=== PATIENT | female | born 1990 | race Caucasian/White ===

== ENCOUNTER 2016-11-23 21:12 | Emergency (ER) | payer OTHER ==
--- NOTE | 2016-11-23 21:44 | ERPHSYRPT ---
- History of Present Illness Time Seen by Provider: 11/23/16 21:40 Source: patient Exam Limitations: no limitations Patient Subjective Stated Complaint: fell yesterday co left wrist pain cant bend her wrist -no other injuries Triage Nursing Assessment: pt is awake and alert and able to answer quetions Physician History: pt fell onto left wrist when slipped on stairs but did not strike any other areas and has no complaints except left wrist; neurovasc tendon function intact ; tender left wrist dorsum and volar; Occurred: this afternoon Method of Injury: fell Quality: constant, sharpness Severity of Pain-Max: moderate Severity of Pain-Current: moderate Extremities Pain Location: wrist: left Modifying Factors: Improves With: cold therapy, immobilization, movement, rest Associated Symptoms: none Allergies/Adverse Reactions: No Known Drug Allergies Allergy (Verified 11/23/16 21:30) Home Medications: Fluoxetine HCl [Prozac] 1 tab DAILY 11/23/16 [History] Hx Tetanus, Diphtheria Vaccination/Date Given: Yes (up to date) Hx Influenza Vaccination/Date Given: No Hx Pneumococcal Vaccination/Date Given: No - Review of Systems Constitutional: No Fever, No Chills Eyes: No Symptoms Ears, Nose, & Throat: No Symptoms Respiratory: No Cough, No Dyspnea Cardiac: No Chest Pain, No Edema, No Syncope Abdominal/Gastrointestinal: No Abdominal Pain, No Nausea, No Vomiting, No Diarrhea Genitourinary Symptoms: No Dysuria Musculoskeletal: Fall, Injury, Joint Pain, No Back Pain, No Neck Pain Skin: No Rash Neurological: No Dizziness, No Focal Weakness, No Sensory Changes Psychological: No Symptoms Endocrine: No Symptoms All Other Systems: Reviewed and Negative - Past Medical History Pertinent Past Medical History: Yes Neurological History: No Pertinent History ENT History: No Pertinent History Cardiac History: No Pertinent History Respiratory History: No Pertinent History Endocrine Medical History: No Pertinent History Musculoskeletal History: No Pertinent History GI Medical History: No Pertinent History History: No Pertinent History Psycho-Social History: Anxiety Female Reproductive Disorders: No Pertinent History Other Medical History: Cold knife cone at age 15 years. Age of first intercourse 15 years. - Past Surgical History Past Surgical History: No Neuro Surgical History: No Pertinent History Cardiac: No Pertinent History Respiratory: No Pertinent History Gastrointestinal: No Pertinent History Genitourinary: No Pertinent History Musculoskeletal: No Pertinent History Female Surgical History: Other Other Surgical History: Conization at age 15 - Social History Smoking Status: Current every day smoker How long have you smoked: 8 Exposure to second hand smoke: Yes Drug Use: none Patient Lives Alone: No - Female History Hx Last Menstrual Period: present Hx Now: Yes - Nursing Vital Signs Nursing Vital Signs: Initial Vital Signs Temperature 97.9 F 11/23/16 21:21 Pulse Rate 64 11/23/16 21:21 Respiratory Rate 18 11/23/16 21:21 Blood Pressure 128/79 11/23/16 21:21 O2 Sat by Pulse Oximetry 99 11/23/16 21:21 Pain Scale Pain Intensity 6 - Physical Exam General Appearance: alert Eyes, Ears, Nose, Throat Exam: moist mucous membranes Neck Exam: non-tender, supple Cardiovascular/Respiratory Exam: chest non-tender, normal breath sounds, regular rate/rhythm, no respiratory distress Abdominal Exam: non-tender, No guarding Back Exam: normal inspection, No vertebral tenderness Shoulder Exam: normal inspection, non-tender, no evidence of injury, normal ROM Elbow/Forearm Exam: normal inspection, non-tender, no evidence of injury, normal ROM Wrist Exam: bone tenderness, pain, soft tissue tenderness Hand Exam: soft tissue tenderness (near wrist only) DTR - Upper Extremity Exam: bicep (R): 2+, bicep (L): 2+, tricep (R): 2+, tricep (L): 2+ Neuro/Tendon Exam: normal sensation, normal motor functions, normal tendon functions, no evidence tendon injury Mental Status Exam: alert, oriented x 3, cooperative Skin Exam: normal color, warm, dry SpO2: 99 Oxygen Delivery: Room Air Procedures - Splinting Location of Splint: Left, Wrist Type of Splint: Velcro Splint Splint Applied By: ED Nurse Pre-Proc Neuro Vasc Exam: normal Post-Proc Neuro Vasc Exam: neurovascular intact, unchanged from pre-exam - Course Nursing assessment & vital signs reviewed: Yes - Radiology Exams Left Wrist X-ray Interpretation: Reviewed by me, Other (cannot rule out nondisplaced scaphoid fracture) Ordered Tests: Active Orders 24 hr Category Date Time Status WRIST (MIN 3 VIEWS) Stat Exams 11/23/16 21:45 Taken - Progress Progress: improved, re-examined Counseled pt/family regarding: diagnosis, need for follow-up, rad results - Departure Time of Disposition: 22:15 Departure Disposition: Home Clinical Impression: Triangular fibrocartilage complex injury Condition: Good Critical Care Time: No Referrals: KRISTIE KNOX [Primary Care Provider] - Instructions: Wrist Sprain, Wrist Fracture Additional Instructions: there could be an undetected fracture of the scaphoid bone inthe wrist - or a tear of the triangular fibrocart - or just a ligament sprain- f/u with your Dr this week to recheck healing and proceed as indicated at that time such as with ortho or MRI ; sometimes an x-ray 10 days later can show the fracture; return meantime if any concerns; followup BP with your Dr also Prescriptions: Hydrocodone/Acetaminophen [[place] 5-325 Tablet] 1 each PO Q4-6HPRN PRN #14 tablet PRN Reason: Pain
[2016-11-23] MEDS ORDERED: NORCO 5/325 MG PO ONE (22:23)
[2016-11-23] MEDS ORDERED: NORCO 5/325 MG ONE (22:27)
[2016-11-23 22:33] VITALS: BP 115/61; PULSE 68; O2SAT 98
--- NOTE | 2016-11-24 10:47 | XRAY ---
Indication: Pain following fall. Comparison: None 3 views of the left wrist obtained. No bony, articular, or soft tissue abnormalities.
== END 2016-11-23 22:33 | disposition home or self-care (01) ==
LOC: ED 21:12
DX: S63.592A Other specified sprain of left wrist, initial encounter (principal); W10.9XXA Fall (on) (from) unspecified stairs and steps, initial encounter
CPT/HCPCS: 73110; 99283; 99284; L3908; A9270-GY

== ENCOUNTER 2017-05-02 23:46 | Emergency (ER) | payer OTHER ==
[2017-05-03] MEDS ORDERED: TORAdol 30 mg Injection IM ONE (00:14)
--- NOTE | 2017-05-03 00:14 | ERPHSYRPT ---
- History of Present Illness Time Seen by Provider: 05/03/17 00:11 Source: patient Exam Limitations: no limitations Patient Subjective Stated Complaint: pain in left wrist x 2 days no known injury. is a hairdresser.. Triage Nursing Assessment: alert cooperative. pain in left wrist. no known injury.. no deformity noted. + radial pulse present. pain with flexin/ extension. Physician History: 27 y/o female comes to the ER with complaints of left wrist pain for the past 2 days. 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 Pt describes the pain as sharp, constant, 8/10, worse with movement and not relieved by motrin. Pt denies any injury to the wrist. Occurred: days ago Method of Injury: unknown Quality: constant Severity of Pain-Max: moderate Severity of Pain-Current: moderate Extremities Pain Location: wrist: left Modifying Factors: Improves With: nothing Associated Symptoms: none Allergies/Adverse Reactions: No Known Drug Allergies Allergy (Verified 11/23/16 21:30) Home Medications: Fluoxetine HCl [Prozac] 1 tab DAILY 11/23/16 [History] Hx Tetanus, Diphtheria Vaccination/Date Given: Yes (up to date) Hx Influenza Vaccination/Date Given: No Hx Pneumococcal Vaccination/Date Given: No Immunizations Up to Date: Yes - Review of Systems Constitutional: No Fever, No Chills Eyes: No Symptoms Ears, Nose, & Throat: No Symptoms Respiratory: No Cough, No Dyspnea Cardiac: No Chest Pain, No Edema, No Syncope Abdominal/Gastrointestinal: No Abdominal Pain, No Nausea, No Vomiting, No Diarrhea Genitourinary Symptoms: No Dysuria Musculoskeletal: Joint Pain, Myalgias, No Back Pain, No Neck Pain Skin: No Rash Neurological: No Dizziness, No Focal Weakness, No Sensory Changes Psychological: No Symptoms Endocrine: No Symptoms All Other Systems: Reviewed and Negative - Past Medical History Pertinent Past Medical History: Yes Neurological History: No Pertinent History ENT History: No Pertinent History Cardiac History: No Pertinent History Respiratory History: No Pertinent History Endocrine Medical History: No Pertinent History Musculoskeletal History: No Pertinent History GI Medical History: No Pertinent History History: No Pertinent History Psycho-Social History: Anxiety Female Reproductive Disorders: No Pertinent History Other Medical History: Cold knife cone at age 15 years. Age of first intercourse 15 years. - Past Surgical History Past Surgical History: Yes Neuro Surgical History: No Pertinent History Cardiac: No Pertinent History Respiratory: No Pertinent History Gastrointestinal: No Pertinent History Genitourinary: No Pertinent History Musculoskeletal: No Pertinent History Female Surgical History: Other Other Surgical History: Conization at age 15 - Social History Smoking Status: Current every day smoker How long have you smoked: 9 Exposure to second hand smoke: No Drug Use: none Patient Lives Alone: No - Female History Hx Last Menstrual Period: 1 month Hx Now: No - Nursing Vital Signs Nursing Vital Signs: Initial Vital Signs Temperature 98 F 05/03/17 00:03 Pulse Rate 67 05/03/17 00:03 Respiratory Rate 16 05/03/17 00:03 Blood Pressure 133/67 05/03/17 00:03 O2 Sat by Pulse Oximetry 100 05/03/17 00:03 Pain Scale Pain Intensity 6 - Physical Exam General Appearance: alert Eyes, Ears, Nose, Throat Exam: moist mucous membranes Neck Exam: non-tender, supple Cardiovascular/Respiratory Exam: chest non-tender, normal breath sounds, regular rate/rhythm, no respiratory distress Abdominal Exam: non-tender, No guarding Back Exam: normal inspection, No vertebral tenderness Shoulder Exam: normal inspection, non-tender Elbow/Forearm Exam: normal inspection, non-tender Wrist Exam: limited ROM, pain, soft tissue tenderness, No normal ROM Hand Exam: normal inspection, non-tender Neuro/Tendon Exam: normal sensation, normal motor functions Mental Status Exam: alert, oriented x 3, cooperative Skin Exam: normal color, warm, dry SpO2: 100 Oxygen Delivery: Room Air - Course Nursing assessment & vital signs reviewed: Yes Ordered Tests: Active Orders 24 hr Category Date Time Status Splint STAT Care 05/03/17 00:51 Ordered WRIST (2 VIEW) Stat Exams 05/03/17 00:34 Taken Medication Summary Discontinued Medications Generic Name Dose Route Start Last Admin Trade Name Freq PRN Reason Stop Dose Admin Ketorolac Tromethamine 60 mg 05/03/17 00:14 05/03/17 00:21 Toradol 30 Mg Injection IM 05/03/17 00:15 60 mg STAT ONE Administration Ketorolac Tromethamine Confirm 05/03/17 00:18 Toradol 30 Mg Injection Administered 05/03/17 00:19 Dose 60 mg .ROUTE .STK-MED ONE - Progress Progress: improved Progress Note: 05/03/17 00:52 The wrist x ray does not show any acute findings. The patient feels better after receiving toradol. Pt will be d/c home on a wrist brace and a script for toradol for wrist sprain. - Departure Time of Disposition: 00:53 Departure Disposition: Home Clinical Impression: Wrist sprain Qualifiers: Encounter type: initial encounter Laterality: left Qualified Code(s): S63.502A - Unspecified sprain of left wrist, initial encounter Condition: Stable Critical Care Time: No Referrals: KRISTIE KNOX [Primary Care Provider] - Instructions: Wrist Sprain Additional Instructions: Follow up with your primary care doctor in the next few days if there is no improvement. Prescriptions: Ketorolac Tromethamine [Toradol] 10 mg PO QID PRN #20 tablet PRN Reason: Pain
[2017-05-03] MEDS ORDERED: TORAdol 30 mg Injection ONE (00:18)
[2017-05-03 01:12] VITALS: BP 114/62; PULSE 70; O2SAT 99
--- NOTE | 2017-05-03 09:56 | XRAY ---
Indication: Pain. Comparison: November 23, 2016. 2 views of the left wrist obtained. Again no bony, articular, or soft tissue abnormalities.
== END 2017-05-03 01:14 | disposition home or self-care (01) ==
LOC: ED 23:46
DX: S63.502A Unspecified sprain of left wrist, initial encounter (principal)
CPT/HCPCS: 73100; 96372; 99283; J1885

== ENCOUNTER 2020-02-13 12:22 | Emergency (ER) | payer BC, OTHER ==
[2020-02-13] MEDS ORDERED: PERCOCET TABLET 5/325MG PO ONE (12:47)
[2020-02-13] MEDS ORDERED: TORAdol 30 mg Injection IM ONE (12:47)
[2020-02-13] MEDS ORDERED: TORAdol 30 mg Injection ONE (12:55)
[2020-02-13] MEDS ORDERED: PERCOCET TABLET 5/325MG ONE (12:55)
[2020-02-13 13:33] VITALS: BP 110/70; PULSE 72
[2020-02-13 13:37] VITALS: O2SAT 99
--- NOTE | 2020-02-13 13:37 | ERPHSYRPT ---
- History of Present Illness Time Seen by Provider: 02/13/20 12:31 Source: patient Exam Limitations: no limitations Patient Subjective Stated Complaint: I fell off a ladder and fell and hit back on wagon Triage Nursing Assessment: aaox3, walked in c/o left mid back pain s/p fell off ladder yesterday. hit back on wagon. has abrasion to left side mid back. Increased pain wit deep breaths. denies other injuries. Physician History: 30 years old female presented in the ER after she fell off a fell 4 to 5 feet high ladder and hit her backslash lower left posterior chest wall against a small yard wagon. Since then she is complaining of moderate to severe intensity sharp pain, aggravated with movements, twisting and partial relief with being resting. Denies any radiation of pain to lower extremities. No loss of bowel or bladder control. No difficulty breathing. No abdominal pain nausea or vomiting. Timing/Duration: yesterday, sudden, worse Method of Injury: fall, trauma Quality: sharp Back Pain Location: lumbar spine, paraspinous muscles Severity of Pain-Max: moderate Severity of Pain-Current: moderate Modifying Factors: Improves With: immobilization, rest. Worsens With: movement Associated Symptoms: denies symptoms Allergies/Adverse Reactions: No Known Drug Allergies Allergy (Verified 11/23/16 21:30) Home Medications: Sertraline HCl 50 mg [Zoloft 50 mg Tablet] 100 mg PO DAILY 02/13/20 [History] Hx Tetanus, Diphtheria Vaccination/Date Given: Yes Hx Influenza Vaccination/Date Given: No Hx Pneumococcal Vaccination/Date Given: No Travel Risk - International Travel Have you traveled outside of the country in past 3 weeks: No - Coronavirus Screening Are you exhibiting any of the following symptoms?: No Close contact with a COVID-19 positive Pt in past 14-21 Days: No - Review of Systems Constitutional: No Symptoms Eyes: No Symptoms Ears, Nose, & Throat: No Symptoms Respiratory: No Symptoms Cardiac: No Symptoms Abdominal/Gastrointestinal: No Symptoms Genitourinary Symptoms: No Symptoms Musculoskeletal: Back Pain Skin: No Symptoms Neurological: No Symptoms Psychological: No Symptoms Endocrine: No Symptoms Hematologic/Lymphatic: No Symptoms Immunological/Allergic: No Symptoms - Past Medical History Pertinent Past Medical History: Yes Neurological History: No Pertinent History ENT History: No Pertinent History Cardiac History: No Pertinent History Respiratory History: No Pertinent History Endocrine Medical History: No Pertinent History Musculoskeletal History: No Pertinent History GI Medical History: No Pertinent History History: No Pertinent History Psycho-Social History: Anxiety Female Reproductive Disorders: No Pertinent History Other Medical History: Cold knife cone at age 15 years. Age of first intercourse 15 years. - Past Surgical History Past Surgical History: Yes Neuro Surgical History: No Pertinent History Cardiac: No Pertinent History Respiratory: No Pertinent History Gastrointestinal: No Pertinent History Genitourinary: No Pertinent History Musculoskeletal: No Pertinent History Female Surgical History: Other Other Surgical History: Conization at age 15 - Social History Smoking Status: Current every day smoker How long have you smoked: 10 years Exposure to second hand smoke: No Drug Use: none Patient Lives Alone: No - Female History Hx Last Menstrual Period: 02/03/20 Hx Now: No - Nursing Vital Signs Nursing Vital Signs: Initial Vital Signs Temperature 98.2 F 02/13/20 12:41 Pulse Rate 66 02/13/20 12:41 Respiratory Rate 18 02/13/20 12:41 Blood Pressure 94/62 02/13/20 12:41 O2 Sat by Pulse Oximetry 99 02/13/20 12:41 Pain Scale Pain Intensity 7 - Physical Exam General Appearance: no apparent distress, alert Eye Exam: PERRL/EOMI, eyes nml inspection Ears, Nose, Throat Exam: normal ENT inspection, pharynx normal Neck Exam: normal inspection, non-tender, supple, full range of motion Respiratory Exam: normal breath sounds, chest tenderness (Left lower posterior chest wall. No crepitus.), lungs clear Cardiovascular Exam: regular rate/rhythm, normal heart sounds Gastrointestinal Exam: soft, normal bowel sounds, No tenderness Back Exam: normal inspection, normal range of motion, muscle spasm, point tenderness (Mild lower lumbar tenderness. 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, normal mood/affect, nml cerebellar function, nml station & gait, sensation nml Skin Exam: normal color SpO2 Interpretation: normal SpO2: 99 O2 Delivery: Room Air Ordered Tests: Active Orders 24 hr Category Date Time Status LUMBAR COMPLETE (MIN 4 VIEWS) Stat Exams 02/13/20 13:27 Taken RIBS BILATERAL INCLUDE PA CXR Stat Exams 02/13/20 13:27 Taken Medication Summary Discontinued Medications Generic Name Dose Route Start Last Admin Trade Name Dada PRN Reason Stop Dose Admin Ketorolac Tromethamine 30 mg 02/13/20 12:47 02/13/20 13:02 Toradol 30 Mg Injection IM 02/13/20 12:48 30 mg STAT ONE Administration Ketorolac Tromethamine Confirm 02/13/20 12:55 Toradol 30 Mg Injection Administered 02/13/20 12:56 Dose 30 mg .ROUTE .STK-MED ONE Oxycodone/Acetaminophen 1 tab 02/13/20 12:47 02/13/20 13:01 Percocet Tablet 5/325mg PO 02/13/20 12:48 1 tab STAT ONE Administration Oxycodone/Acetaminophen Confirm 02/13/20 12:55 Percocet Tablet 5/325mg Administered 02/13/20 12:56 Dose 1 tab .ROUTE .STK-MED ONE - Progress Progress: improved Progress Note: 02/13/20 13:34 She is given Toradol and Percocet for symptomatic relief. I have obtained x- rays rib series which did not show any obvious displaced rib fractures or pneumothorax. X-rays lumbar spine did not show any obvious fracture or subluxation. Official reads are pending. We will continue with pain medications and muscle relaxants to go home and outpatient follow-up. Discussed signs symptoms of worsening needing return to ER which she seems understanding. Counseled pt/family regarding: diagnosis, need for follow-up, rad results - Departure Departure Disposition: Home Clinical Impression: Chest wall contusion Qualifiers: Encounter type: initial encounter Laterality: left Qualified Code(s): S20.212A - Contusion of left front wall of thorax, initial encounter Low back pain Qualifiers: Chronicity: acute Back pain laterality: left Sciatica presence: without sciatica Qualified Code(s): M54.5 - Low back pain Condition: Stable Critical Care Time: No Referrals: KRISTIE KNOX [Primary Care Provider] - (1 to 2 days for reevaluation) Instructions: Low Back Pain (DC) Additional Instructions: Take ibuprofen/pain medications as needed. Follow-up with your primary care physician for reevaluation. Return to ER for worsening pain, difficulty breathing, numbness tingling weakness of lower extremities/loss of bowel or bladder control. Prescriptions: Hydrocodone/APAP 5-325 Tab^^^ [[place] 5-325 Tablet^^^] 1 tab PO Q6HPRN PRN #10 tablet MDD 6 PRN Reason: Pain Methocarbamol [Robaxin-750] 750 mg PO TID #30 tablet
--- NOTE | 2020-02-13 19:54 | XRAY ---
Indication: Pain following fall off ladder. Comparison: None 5 view lumbar spine demonstrates 5 lumbar segments with very minimal levoscoliosis centered at L3-L4. No other bony, articular, or soft tissue abnormalities.
--- NOTE | 2020-02-13 19:56 | XRAY ---
Indication: Pain during fall off ladder. Comparison: None AP chest and 2 view left and right ribs demonstrates very minimal dextroscoliosis. No other bony, acute, or soft tissue abnormalities.
== END 2020-02-13 13:41 | disposition home or self-care (01) ==
LOC: ED 12:22
DX: S20.212A Contusion of left front wall of thorax, initial encounter (principal); M54.5 Low back pain; W11.XXXA Fall on and from ladder, initial encounter
CPT/HCPCS: 71111; 72110; 96372; 99284; J1885; A9270-GY

== ENCOUNTER 2020-07-08 14:03 | Emergency (ER) | payer OTHER ==
--- NOTE | 2020-07-08 14:10 | ERPHSYRPT ---
- History of Present Illness Time Seen by Provider: 07/08/20 14:10 Historian: patient Exam Limitations: no limitations Physician History: This is a 30-year-old white female has had no prior abdominal surgeries and presents with left of midline left upper quadrant and left lower quadrant abdominal pain. Pain began yesterday. It has been intermittent stabbing and aching. There is been associated diarrhea. She vomited once last night. Patient has never had anything like this before. Patient's cows are being treated for E. coli. Patient is concerned that maybe she has E. coli as well. Patient has not had a fever. She has no flulike symptoms. She has no chest pain and she has no shortness of breath. Timing/Duration: yesterday, intermittent, worse Activities at Onset: none Quality: aching, sharpness Abdominal Pain Onset Location: LUQ, LLQ Pain Radiation: no radiation Severity of Pain-Max: moderate Severity of Pain-Current: mild Associated Symptoms: diarrhea, nausea, vomiting Previous symptoms: no prior history Allergies/Adverse Reactions: No Known Drug Allergies Allergy (Verified 07/08/20 14:19) Hx Tetanus, Diphtheria Vaccination/Date Given: Yes Hx Influenza Vaccination/Date Given: No Hx Pneumococcal Vaccination/Date Given: No Travel Risk - International Travel Have you traveled outside of the country in past 3 weeks: No - Coronavirus Screening Are you exhibiting any of the following symptoms?: No Close contact with a COVID-19 positive Pt in past 14-21 Days: No - Vaccine Status Have you recieved a Covid-19 vaccination: No - Review of Systems Constitutional: No Symptoms Eyes: No Symptoms Ears, Nose, & Throat: No Symptoms Respiratory: No Symptoms Cardiac: No Symptoms Abdominal/Gastrointestinal: Abdominal Pain, Nausea, Vomiting, Diarrhea Genitourinary Symptoms: No Symptoms Musculoskeletal: No Symptoms Skin: No Symptoms Neurological: No Symptoms Psychological: No Symptoms Endocrine: No Symptoms Hematologic/Lymphatic: No Symptoms Immunological/Allergic: No Symptoms All Other Systems: Reviewed and Negative - Past Medical History Pertinent Past Medical History: Yes Neurological History: No Pertinent History ENT History: No Pertinent History Cardiac History: No Pertinent History Respiratory History: No Pertinent History Endocrine Medical History: No Pertinent History Musculoskeletal History: No Pertinent History GI Medical History: No Pertinent History History: No Pertinent History Psycho-Social History: Anxiety Female Reproductive Disorders: No Pertinent History Other Medical History: Cold knife cone at age 15 years. Age of first intercourse 15 years. - Past Surgical History Past Surgical History: Yes Neuro Surgical History: No Pertinent History Cardiac: No Pertinent History Respiratory: No Pertinent History Gastrointestinal: No Pertinent History Genitourinary: No Pertinent History Musculoskeletal: No Pertinent History Female Surgical History: Other Other Surgical History: Conization at age 15 - Social History Smoking Status: Current every day smoker How long have you smoked: 10 years Exposure to second hand smoke: No Drug Use: none Patient Lives Alone: No - Nursing Vital Signs Nursing Vital Signs: Initial Vital Signs Temperature 98.3 F 07/08/20 14:09 Pulse Rate 86 07/08/20 14:09 Blood Pressure 127/89 07/08/20 14:09 O2 Sat by Pulse Oximetry 97 07/08/20 14:09 Pain Scale Pain Intensity 2 - Physical Exam General Appearance: no apparent distress, alert, anxiety Eye Exam: PERRL/EOMI, eyes nml inspection Ears, Nose, Throat Exam: normal ENT inspection, moist mucous membranes Neck Exam: normal inspection, non-tender, supple, full range of motion Respiratory Exam: normal breath sounds, lungs clear, airway intact, No chest tenderness, No respiratory distress Cardiovascular Exam: regular rate/rhythm, normal heart sounds, normal peripheral pulses Gastrointestinal/Abdomen Exam: soft, normal bowel sounds, tenderness, guarding, No rebound Pelvic Exam: not done Rectal Exam: not done Back Exam: normal inspection, normal range of motion, No CVA tenderness Extremity Exam: normal inspection, normal range of motion, pelvis stable Neurologic Exam: alert, oriented x 3, cooperative, 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, normal mood/affect, nml cerebellar function, nml station & gait, sensation nml Skin Exam: normal color, warm, dry Lymphatic Exam: No adenopathy SpO2 Interpretation: normal O2 Delivery: Room Air - Course Nursing assessment & vital signs reviewed: Yes Ordered Tests: Active Orders 24 hr Category Date Time Status IV Insertion STAT Care 07/08/20 14:29 Active ABDOMEN AND PELVIS W/0 CONTRAS [CT] Stat Exams 07/08/20 14:30 Taken AMYLASE Stat Lab 07/08/20 15:07 Completed CBC W DIFF Stat Lab 07/08/20 15:07 Completed CMP Stat Lab 07/08/20 15:07 Completed CULTURE,URINE Stat Lab 07/08/20 15:21 Received LIPASE Stat Lab 07/08/20 15:07 Completed Lactic Acid Stat Lab 07/08/20 14:40 Completed UA W/RFX UR CULTURE Stat Lab 07/08/20 15:21 Completed Medication Summary Discontinued Medications Generic Name Dose Route Start Last Admin Trade Name Freq PRN Reason Stop Dose Admin Hydromorphone HCl 1 mg 07/08/20 14:29 07/08/20 14:36 Hydromorphone 1 Mg/Ml Injection IV 07/08/20 14:30 1 mg STAT ONE Administration Hydromorphone HCl Confirm 07/08/20 14:33 Hydromorphone 1 Mg/Ml Injection Administered 07/08/20 14:34 Dose 1 mg .ROUTE .STK-MED ONE Sodium Chloride 1,000 mls @ 999 mls/hr 07/08/20 14:29 07/08/20 15:39 Sodium Chloride 0.9% 1000 Ml IV 07/08/20 15:29 Infused .Q1H1M STA Infusion Sodium Chloride Confirm 07/08/20 14:33 Sodium Chloride 0.9% 1000 Ml Administered 07/08/20 14:34 Dose 1,000 mls @ ud .ROUTE .STK-MED ONE Ondansetron HCl 4 mg 07/08/20 14:29 07/08/20 14:36 Zofran 4 Mg/2 Ml Vial IV 07/08/20 14:30 4 mg STAT ONE Administration Ondansetron HCl Confirm 07/08/20 14:33 Zofran 4 Mg/2 Ml Vial Administered 07/08/20 14:34 Dose 4 mg .ROUTE .STK-MED ONE Lab/Rad Data: Laboratory Result Diagrams 07/08/20 15:07 07/08/20 15:07 Laboratory Results 07/08/20 07/08/20 07/08/20 Range/Units 15:21 15:07 15:07 WBC 5.9 (4.0-10.5) K/mm3 RBC 5.19 (4.1-5.4) M/mm3 Hgb 15.7 (12.0-16.0) gm/dl Hct 47.3 H (35-47) % MCV 91.1 (78-100) fl MCH 30.3 (26-32) pg MCHC 33.2 (32-36) g/dl RDW 13.6 (11.5-14.0) % Plt Count 261 (150-450) K/mm3 MPV 11.3 H (7.5-11.0) fl Gran % 72.3 H (36.0-66.0) % Eos # (Auto) 0.06 (0-0.5) Absolute Lymphs (auto) 0.96 L (1.0-4.6) Absolute Monos (auto) 0.59 (0.0-1.3) Lymphocytes % 16.4 L (24.0-44.0) % Monocytes % 10.1 (0.0-12.0) % Eosinophils % 1.0 (0.00-5.0) % Basophils % 0.2 (0.0-0.4) % Absolute Granulocytes 4.24 (1.4-6.9) Basophils # 0.01 (0-0.4) Sodium 138 (137-145) mmol/L Potassium 3.8 (3.5-5.1) mmol/L Chloride 105 (98-107) mmol/L Carbon Dioxide 22 (22-30) mmol/L Anion Gap 14.4 (5-15) MEQ/L BUN 14 (7-17) mg/dL Creatinine 0.67 (0.52-1.04) mg/dL Estimated GFR > 60.0 ML/MIN Glucose 131 H (74-106) mg/dL Lactic Acid (0.4-2.0) Calcium 9.5 (8.4-10.2) mg/dL Total Bilirubin 0.50 (0.2-1.3) mg/dL AST 22 (14-36) U/L ALT 17 (0-35) U/L Alkaline Phosphatase 76 (38-126) U/L Serum Total Protein 7.7 (6.3-8.2) g/dL Albumin 4.5 (3.5-5.0) g/dL Amylase 52 (30-110) U/L Lipase 51 (23-300) U/L Urine Color GEORGE (YELLOW) Urine Appearance CLOUDY (CLEAR) Urine pH 5.0 (5-6) Ur Specific [place] 1.031 (1.005-1.025) Urine Protein 30 (Negative) Urine Ketones NEGATIVE (NEGATIVE) Urine Blood SMALL (0-5) Eduard/ul Urine Nitrite NEGATIVE (NEGATIVE) Urine Bilirubin NEGATIVE (NEGATIVE) Urine Urobilinogen NEGATIVE (0-1) mg/dL Ur Leukocyte Esterase NEGATIVE (NEGATIVE) Urine WBC (Auto) 0-2 (0-5) /HPF Urine RBC (Auto) 0-2 (0-2) /HPF U Epithel Cells (Auto) FEW (FEW) /HPF Urine Bacteria (Auto) NONE (NEGATIVE) /HPF Urine Mucus (Auto) MANY (NEGATIVE) /HPF Urine Culture Reflexed YES (NO) Urine Glucose NEGATIVE (NEGATIVE) mg/dL 07/08/20 Range/Units 14:40 WBC (4.0-10.5) K/mm3 RBC (4.1-5.4) M/mm3 Hgb (12.0-16.0) gm/dl Hct (35-47) % MCV (78-100) fl MCH (26-32) pg MCHC (32-36) g/dl RDW (11.5-14.0) % Plt Count (150-450) K/mm3 MPV (7.5-11.0) fl Gran % (36.0-66.0) % Eos # (Auto) (0-0.5) Absolute Lymphs (auto) (1.0-4.6) Absolute Monos (auto) (0.0-1.3) Lymphocytes % (24.0-44.0) % Monocytes % (0.0-12.0) % Eosinophils % (0.00-5.0) % Basophils % (0.0-0.4) % Absolute Granulocytes (1.4-6.9) Basophils # (0-0.4) Sodium (137-145) mmol/L Potassium (3.5-5.1) mmol/L Chloride (98-107) mmol/L Carbon Dioxide (22-30) mmol/L Anion Gap (5-15) MEQ/L BUN (7-17) mg/dL Creatinine (0.52-1.04) mg/dL Estimated GFR ML/MIN Glucose (74-106) mg/dL Lactic Acid 1.2 (0.4-2.0) Calcium (8.4-10.2) mg/dL Total Bilirubin (0.2-1.3) mg/dL AST (14-36) U/L ALT (0-35) U/L Alkaline Phosphatase (38-126) U/L Serum Total Protein (6.3-8.2) g/dL Albumin (3.5-5.0) g/dL Amylase (30-110) U/L Lipase (23-300) U/L Urine Color (YELLOW) Urine Appearance (CLEAR) Urine pH (5-6) Ur Specific [place] (1.005-1.025) Urine Protein (Negative) Urine Ketones (NEGATIVE) Urine Blood (0-5) Eduard/ul Urine Nitrite (NEGATIVE) Urine Bilirubin (NEGATIVE) Urine Urobilinogen (0-1) mg/dL Ur Leukocyte Esterase (NEGATIVE) Urine WBC (Auto) (0-5) /HPF Urine RBC (Auto) (0-2) /HPF U Epithel Cells (Auto) (FEW) /HPF Urine Bacteria (Auto) (NEGATIVE) /HPF Urine Mucus (Auto) (NEGATIVE) /HPF Urine Culture Reflexed (NO) Urine Glucose (NEGATIVE) mg/dL - Progress Progress: improved, pain not gone completely, re-examined Progress Note: 07/08/20 16:51 CAT scan of the abdomen and pelvis with out contrast shows a moderate amount of fluid within the small bowel and proximal large bowel. This is suggestive of enteritis. Counseled pt/family regarding: lab results, diagnosis, need for follow-up, rad results - Departure Departure Disposition: Home Clinical Impression: Enterocolitis Condition: Stable Critical Care Time: No Referrals: KRISTIE KNOX [Primary Care Provider] - Additional Instructions: Plenty fluids. Take medication as prescribed. Follow-up with your primary care physician for further management Prescriptions: Hydrocodone/APAP 5/325 [Fowler 5/325 mg] 1 each PO Q8H PRN PRN #9 tablet MDD 3 PRN Reason: Pain Ciprofloxacin [Cipro 500 MG] 500 mg PO BID #14 tablet Metronidazole 500 mg [Flagyl 500 MG] 500 mg PO TID #21 tablet
[2020-07-08 14:19] VITALS: BP 127/89
[2020-07-08] MEDS ORDERED: Sodium Chloride 0.9% 1000 ML 1,000 ML IV STA (14:29)
[2020-07-08] MEDS ORDERED: Zofran 4 MG/2 ML VIAL IV ONE (14:29)
[2020-07-08] MEDS ORDERED: Hydromorphone 1 mg/ml Injection IV ONE (14:29)
[2020-07-08] MEDS ORDERED: Zofran 4 MG/2 ML VIAL ONE (14:33)
[2020-07-08] MEDS ORDERED: Hydromorphone 1 mg/ml Injection ONE (14:33)
[2020-07-08] MEDS ORDERED: Sodium Chloride 0.9% 1000 ML 1,000 ML ONE (14:33)
[2020-07-08 15:08] LABS: Absolute Neutrophil Ct (ANC) 4.24 (1.4-6.9); BASOPHIL % 0.2 % (0.0-0.4); Basophil (Absolute #) 0.01 (0-0.4); Eosinophil (Absolute #) 0.06 (0-0.5); Hematocrit 47.3 % (35-47); Hemoglobin 15.7 gm/dl (12.0-16.0); Lymphocyte (Absolute #) 0.96 (1.0-4.6); Lymphocytes % 16.4 % (24.0-44.0); Mean Cell Volume 91.1 fl (78-100); Mean Corpuscular Hemoglobin 30.3 pg (26-32); Mean Corpuscular Hgb Concent. 33.2 g/dl (32-36); Mean Platelet Volume 11.3 fl (7.5-11.0); Monocyte (Absolute #) 0.59 (0.0-1.3); Monocytes % 10.1 % (0.0-12.0); Neutrophil % 72.3 % (36.0-66.0); Platelet Count 261 K/mm3 (150-450); Red Blood Count 5.19 M/mm3 (4.1-5.4); Red Cell Distribution Width 13.6 % (11.5-14.0); White Blood Count 5.9 K/mm3 (4.0-10.5)
[2020-07-08 15:19] LABS: ALBUMIN 4.5 g/dL (3.5-5.0); ALKALINE PHOSPHATASE 76 U/L (38-126); AMYLASE 52 U/L (30-110); ANION GAP 14.4 MEQ/L (5-15); BLOOD UREA NITROGEN 14 mg/dL (7-17); CHLORIDE 105 mmol/L (98-107); Calcium 9.5 mg/dL (8.4-10.2); Carbon Dioxide 22 mmol/L (22-30); Creatinine 1 0.67 mg/dL (0.52-1.04); EST GLOMERULAR FILTRATION RATE > 60.0 ML/MIN; Glucose 131 mg/dL (74-106); LIPASE 51 U/L (23-300); Potassium 3.8 mmol/L (3.5-5.1); SGOT/AST 22 U/L (14-36); SGPT/ALT 17 U/L (0-35); SODIUM 138 mmol/L (137-145); Total Protein 7.7 g/dL (6.3-8.2)
[2020-07-08 15:31] VITALS: O2SAT 98
[2020-07-08 15:40] LABS: Appearance CLOUDY (CLEAR); Bilirubin NEGATIVE (NEGATIVE); Blood SMALL Ery/ul (0-5); Epithelial Cells FEW /HPF (FEW); Glucose NEGATIVE (NEGATIVE); Ketones NEGATIVE (NEGATIVE); Leukocyte Esterase NEGATIVE (NEGATIVE); Mucus MANY /HPF (NEGATIVE); Nitrite NEGATIVE (NEGATIVE); Protein,Urine Dip 30 (Negative); RBC 0-2 /HPF (0-2); Specific Gravity 1.031 (1.005-1.025); Urobilinogen NEGATIVE mg/dL (0-1); WBC 0-2 /HPF (0-5)
[2020-07-08 16:16] VITALS: PULSE 63
[2020-07-08] MEDS ORDERED: Flagyl 500 MG PO ONE (16:50)
[2020-07-08] MEDS ORDERED: Levofloxacin 500 MG Tablet PO ONE (16:50)
[2020-07-08] MEDS ORDERED: Flagyl 500 MG ONE (17:17)
[2020-07-08] MEDS ORDERED: Levofloxacin 500 MG Tablet ONE (17:17)
--- NOTE | 2020-07-08 20:36 | XRAY ---
Indication: Abdomen pain and diarrhea 2 days. Multiple contiguous axial images obtained through the abdomen and pelvis without contrast. Comparison: None. Lung bases are clear. Heart is not enlarged. Noncontrasted stomach and bowel loops appear nonobstructed. Normal appendix. Colon demonstrates minimal/mild fluid distention with descending and sigmoid fluid leveling even diarrhea. No free fluid/air. Remaining liver, gallbladder, pancreas, spleen, adrenal glands, kidneys, ureters, bladder, uterus, and aorta appear unremarkable for noncontrast exam. Osseous structures intact. Impression: Colonic diarrhea. Remaining CT abdomen/pelvis without contrast exam is negative. Comment: Preliminary interpretation was made by [facility]. No critical discrepancy.
== END 2020-07-08 17:27 | disposition home or self-care (01) ==
LOC: ED 14:03
DX: K52.9 Noninfective gastroenteritis and colitis, unspecified (principal)
CPT/HCPCS: 36000; 36415; 74176; 80053; 81001; 82150; 83605; 83690; 85025; 87077; 87086; 87186; 96360; 96374; 96375; 99284; J1170; J2405; A9270-GY

== ENCOUNTER 2021-02-16 15:42 | Emergency (ER) | payer OTHER ==
[2021-02-16] MEDS ORDERED: Sodium Chloride 0.9% 1000 ML 1,000 ML IV SCH (16:00)
[2021-02-16] MEDS ORDERED: Sodium Chloride 0.9% 1000 ML 1,000 ML ONE (16:05)
[2021-02-16 16:15] LABS: Absolute Neutrophil Ct (ANC) 5.72 (1.4-6.9); BASOPHIL % 0.3 % (0.0-0.4); Basophil (Absolute #) 0.03 (0-0.4); Eosinophil % 2.1 % (0.00-5.0); Hematocrit 44.9 % (35-47); Hemoglobin 14.6 gm/dl (12.0-16.0); Lymphocyte (Absolute #) 2.81 (1.0-4.6); Lymphocytes % 29.4 % (24.0-44.0); Mean Cell Volume 92.2 fl (78-100); Mean Corpuscular Hgb Concent. 32.5 g/dl (32-36); Mean Platelet Volume 10.9 fl (7.5-11.0); Monocyte (Absolute #) 0.81 (0.0-1.3); Monocytes % 8.5 % (0.0-12.0); Neutrophil % 59.7 % (36.0-66.0); Platelet Count 325 K/mm3 (150-450); Red Blood Count 4.87 M/mm3 (4.1-5.4); Red Cell Distribution Width 13.1 % (11.5-14.0); White Blood Count 9.6 K/mm3 (4.0-10.5)
[2021-02-16 16:21] LABS: Appearance CLEAR (CLEAR); Bilirubin NEGATIVE (NEGATIVE); Blood NEGATIVE Ery/ul (0-5); Glucose NEGATIVE (NEGATIVE); Ketones NEGATIVE (NEGATIVE); Leukocyte Esterase NEGATIVE (NEGATIVE); Mucus SLIGHT /HPF (NEGATIVE); Nitrite NEGATIVE (NEGATIVE); Protein,Urine Dip NEGATIVE (Negative); Specific Gravity 1.021 (1.005-1.025); Urobilinogen NEGATIVE mg/dL (0-1)
--- NOTE | 2021-02-16 16:41 | XRAY ---
Indication: Pain radiating left arm. Multiple contiguous axial images obtained through the cervical spine. Sagittal and coronal reformatted images obtained. Comparison: Cervical radiograph November 30, 2015. Axial images negative for acute fracture, suspicious bony lesions, or spinal canal stenosis. Facets are symmetric. Sagittal and coronal reformatted images again demonstrates lordotic straightening with vertebral body heights/disc spaces are maintained. No acute fracture, subluxation, or jumped facet. Normal appearing craniocervical junction. Visualized noncontrasted soft tissues including base of the brain and lung apices are unremarkable. Impression: Continued negative CT cervical spine.
[2021-02-16 16:44] LABS: ALBUMIN 4.3 g/dL (3.5-5.0); ALKALINE PHOSPHATASE 62 U/L (38-126); BLOOD UREA NITROGEN 14 mg/dL (7-17); CHLORIDE 108 mmol/L (98-107); Calcium 9.4 mg/dL (8.4-10.2); Carbon Dioxide 22 mmol/L (22-30); Creatinine 1 0.78 mg/dL (0.52-1.04); EST GLOMERULAR FILTRATION RATE > 60.0 ML/MIN; Glucose 107 mg/dL (74-106); MAGNESIUM 1.9 mg/dL (1.6-2.3); NT PRO BNP 46.2 pg/mL (0-450); SGOT/AST 24 U/L (14-36); SGPT/ALT 25 U/L (0-35); SODIUM 139 mmol/L (137-145); Total Protein 7.2 g/dL (6.3-8.2)
--- NOTE | 2021-02-16 16:44 | XRAY ---
Indication: Chest pain radiating left arm. Comparison: February 13, 2020. Single PA chest again demonstrates normal heart, lungs, and bony thorax.
--- NOTE | 2021-02-16 17:04 | ERPHSYRPT ---
- History of Present Illness Time Seen by Provider: 02/16/21 15:55 Source: patient Exam Limitations: no limitations Patient Subjective Stated Complaint: L arm pain Triage Nursing Assessment: pt to ED c/o L arm discomfort and some tingling x 3 days intermittently. rates 1/10 pain. 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 no loss ROM or loss of sensation. distal pulses strong. reports she has had this happen before but always resolves on its own. Physician History: Patient is a 31-year-old female who presents with a strange sensation on the inner aspect of the left upper arm she has had this on and off for some time but today the sensation has come and stays. She is concerned it might represent some sort of cardiac dysfunction she also reports numbness on the dorsum of the hand and they reviewed radial nerve pattern. She denies any shortness of breath nausea vomiting diaphoresis etc. She does have a family history of heart disease. Occurred: this morning Method of Injury: unknown Quality: constant, dullness Severity of Pain-Max: mild Severity of Pain-Current: mild Extremities Pain Location: arm: left (Area of pain in the medial aspect of the left upper arm) Modifying Factors: Improves With: nothing Associated Symptoms: none Allergies/Adverse Reactions: No Known Drug Allergies Allergy (Verified 02/16/21 15:53) Hx Tetanus, Diphtheria Vaccination/Date Given: Yes Hx Influenza Vaccination/Date Given: No Hx Pneumococcal Vaccination/Date Given: No Immunizations Up to Date: Yes Travel Risk - International Travel Have you traveled outside of the country in past 3 weeks: No - Coronavirus Screening Are you exhibiting any of the following symptoms?: No Close contact with a COVID-19 positive Pt in past 14-21 Days: No - Vaccine Status Have you recieved a Covid-19 vaccination: No - Review of Systems Constitutional: No Fever, No Chills Eyes: No Symptoms Ears, Nose, & Throat: No Symptoms Respiratory: No Cough, No Dyspnea Cardiac: No Chest Pain, No Edema, No Syncope Abdominal/Gastrointestinal: No Abdominal Pain, No Nausea, No Vomiting, No Diarrhea Genitourinary Symptoms: No Dysuria Musculoskeletal: No Back Pain, No Neck Pain Skin: No Rash Neurological: No Dizziness, No Focal Weakness, No Sensory Changes Psychological: No Symptoms Endocrine: No Symptoms All Other Systems: Reviewed and Negative - Past Medical History Pertinent Past Medical History: Yes Neurological History: No Pertinent History ENT History: No Pertinent History Cardiac History: No Pertinent History Respiratory History: No Pertinent History Endocrine Medical History: No Pertinent History Musculoskeletal History: No Pertinent History GI Medical History: No Pertinent History History: No Pertinent History Psycho-Social History: Anxiety Female Reproductive Disorders: No Pertinent History Other Medical History: Cold knife cone at age 15 years. Age of first intercourse 15 years. - Past Surgical History Past Surgical History: Yes Neuro Surgical History: No Pertinent History Cardiac: No Pertinent History Respiratory: No Pertinent History Gastrointestinal: No Pertinent History Genitourinary: No Pertinent History Musculoskeletal: No Pertinent History Female Surgical History: Other Other Surgical History: Conization at age 15 - Social History Smoking Status: Current every day smoker How long have you smoked: 10 years Exposure to second hand smoke: No Drug Use: none Patient Lives Alone: No - Female History Hx Last Menstrual Period: 3 days ago Hx Now: No - Nursing Vital Signs Nursing Vital Signs: Initial Vital Signs Temperature 96.9 F 02/16/21 15:45 Pulse Rate 64 02/16/21 15:45 Respiratory Rate 18 02/16/21 15:45 Blood Pressure 137/82 02/16/21 15:45 O2 Sat by Pulse Oximetry 98 02/16/21 15:45 Pain Scale Pain Intensity 0 - Physical Exam General Appearance: alert Eyes, Ears, Nose, Throat Exam: moist mucous membranes Neck Exam: non-tender, supple Cardiovascular/Respiratory Exam: chest non-tender, normal breath sounds, regular rate/rhythm, no respiratory distress Abdominal Exam: non-tender, No guarding Back Exam: normal inspection, No vertebral tenderness Elbow/Forearm Exam: normal inspection Wrist Exam: normal inspection Hand Exam: normal inspection, no evidence of injury Neuro/Tendon Exam: normal sensation, normal motor functions Mental Status Exam: alert, oriented x 3, cooperative Skin Exam: normal color, warm, dry SpO2 Interpretation: normal SpO2: 97 O2 Delivery: Room Air - Course Nursing assessment & vital signs reviewed: Yes EKG Interpreted by Me: RATE, Sinus Rhythm, NORMAL AXIS, NORMAL INTERVALS, NORMAL QRS - CT Exams Soft Tissue Neck CT Interpretation: Negative, Tele-radiologist Report Ordered Tests: Active Orders 24 hr Category Date Time Status EKG-ER Only STAT Care 02/16/21 15:50 Active IV Insertion STAT Care 02/16/21 15:58 Active CHEST 1 VIEW (PORTABLE) Stat Exams 02/16/21 15:51 Completed NECK WO CONTRAST [CT] Stat Exams 02/16/21 15:50 Completed CBC W DIFF Stat Lab 02/16/21 16:00 Completed CMP Stat Lab 02/16/21 16:00 Completed Lactic Acid Stat Lab 02/16/21 16:13 Completed MAGNESIUM Stat Lab 02/16/21 16:00 Completed NT PRO BNP Stat Lab 02/16/21 16:00 Completed TROPONIN Q3H Lab 02/16/21 16:00 Completed TROPONIN Q3H Lab 02/16/21 19:00 Ordered TROPONIN Q3H Lab 02/16/21 22:00 Ordered TROPONIN Q3H Lab 02/17/21 01:00 Ordered TROPONIN Q3H Lab 02/17/21 04:00 Ordered UA W/RFX UR CULTURE Stat Lab 02/16/21 16:00 Completed Medication Summary Generic Name Dose Route Start Last Admin Trade Name Freq PRN Reason Stop Dose Admin Sodium Chloride 1,000 mls @ 100 mls/hr 02/16/21 16:00 02/16/21 16:07 Sodium Chloride 0.9% 1000 Ml IV 03/18/21 15:59 100 mls/hr .Q10H RAULITO Administration Lab/Rad Data: Laboratory Result Diagrams 02/16/21 16:00 02/16/21 16:00 Laboratory Results 02/16/21 02/16/21 02/16/21 Range/Units 16:13 16:00 16:00 WBC (4.0-10.5) K/mm3 RBC (4.1-5.4) M/mm3 Hgb (12.0-16.0) gm/dl Hct (35-47) % MCV (78-100) fl MCH (26-32) pg MCHC (32-36) g/dl RDW (11.5-14.0) % Plt Count (150-450) K/mm3 MPV (7.5-11.0) fl Gran % (36.0-66.0) % Eos # (Auto) (0-0.5) Absolute Lymphs (auto) (1.0-4.6) Absolute Monos (auto) (0.0-1.3) Lymphocytes % (24.0-44.0) % Monocytes % (0.0-12.0) % Eosinophils % (0.00-5.0) % Basophils % (0.0-0.4) % Absolute Granulocytes (1.4-6.9) Basophils # (0-0.4) Sodium (137-145) mmol/L Potassium (3.5-5.1) mmol/L Chloride (98-107) mmol/L Carbon Dioxide (22-30) mmol/L Anion Gap (5-15) MEQ/L BUN (7-17) mg/dL Creatinine (0.52-1.04) mg/dL Estimated GFR ML/MIN Glucose (74-106) mg/dL Lactic Acid 0.9 (0.4-2.0) Calcium (8.4-10.2) mg/dL Magnesium (1.6-2.3) mg/dL Total Bilirubin (0.2-1.3) mg/dL AST (14-36) U/L ALT (0-35) U/L Alkaline Phosphatase (38-126) U/L Troponin I < 0.012 (0.000-0.034) ng/mL NT-Pro-B Natriuret Pep (0-450) pg/mL Serum Total Protein (6.3-8.2) g/dL Albumin (3.5-5.0) g/dL Urine Color YELLOW (YELLOW) Urine Appearance CLEAR (CLEAR) Urine pH 6.0 (5-6) Ur Specific [place] 1.021 (1.005-1.025) Urine Protein NEGATIVE (Negative) Urine Ketones NEGATIVE (NEGATIVE) Urine Blood NEGATIVE (0-5) Eduard/ul Urine Nitrite NEGATIVE (NEGATIVE) Urine Bilirubin NEGATIVE (NEGATIVE) Urine Urobilinogen NEGATIVE (0-1) mg/dL Ur Leukocyte Esterase NEGATIVE (NEGATIVE) Urine WBC (Auto) NONE (0-5) /HPF Urine RBC (Auto) NONE (0-2) /HPF U Epithel Cells (Auto) NONE (FEW) /HPF Urine Mucus (Auto) SLIGHT (NEGATIVE) /HPF Urine Culture Reflexed NO (NO) Urine Glucose NEGATIVE (NEGATIVE) mg/dL 02/16/21 02/16/21 Range/Units 16:00 16:00 WBC 9.6 (4.0-10.5) K/mm3 RBC 4.87 (4.1-5.4) M/mm3 Hgb 14.6 (12.0-16.0) gm/dl Hct 44.9 (35-47) % MCV 92.2 (78-100) fl MCH 30.0 (26-32) pg MCHC 32.5 (32-36) g/dl RDW 13.1 (11.5-14.0) % Plt Count 325 (150-450) K/mm3 MPV 10.9 (7.5-11.0) fl Gran % 59.7 (36.0-66.0) % Eos # (Auto) 0.20 (0-0.5) Absolute Lymphs (auto) 2.81 (1.0-4.6) Absolute Monos (auto) 0.81 (0.0-1.3) Lymphocytes % 29.4 (24.0-44.0) % Monocytes % 8.5 (0.0-12.0) % Eosinophils % 2.1 (0.00-5.0) % Basophils % 0.3 (0.0-0.4) % Absolute Granulocytes 5.72 (1.4-6.9) Basophils # 0.03 (0-0.4) Sodium 139 (137-145) mmol/L Potassium 4.0 (3.5-5.1) mmol/L Chloride 108 H (98-107) mmol/L Carbon Dioxide 22 (22-30) mmol/L Anion Gap 14.0 (5-15) MEQ/L BUN 14 (7-17) mg/dL Creatinine 0.78 (0.52-1.04) mg/dL Estimated GFR > 60.0 ML/MIN Glucose 107 H (74-106) mg/dL Lactic Acid (0.4-2.0) Calcium 9.4 (8.4-10.2) mg/dL Magnesium 1.9 (1.6-2.3) mg/dL Total Bilirubin 0.60 (0.2-1.3) mg/dL AST 24 (14-36) U/L ALT 25 (0-35) U/L Alkaline Phosphatase 62 (38-126) U/L Troponin I (0.000-0.034) ng/mL NT-Pro-B Natriuret Pep 46.2 (0-450) pg/mL Serum Total Protein 7.2 (6.3-8.2) g/dL Albumin 4.3 (3.5-5.0) g/dL Urine Color (YELLOW) Urine Appearance (CLEAR) Urine pH (5-6) Ur Specific [place] (1.005-1.025) Urine Protein (Negative) Urine Ketones (NEGATIVE) Urine Blood (0-5) Eduard/ul Urine Nitrite (NEGATIVE) Urine Bilirubin (NEGATIVE) Urine Urobilinogen (0-1) mg/dL Ur Leukocyte Esterase (NEGATIVE) Urine WBC (Auto) (0-5) /HPF Urine RBC (Auto) (0-2) /HPF U Epithel Cells (Auto) (FEW) /HPF Urine Mucus (Auto) (NEGATIVE) /HPF Urine Culture Reflexed (NO) Urine Glucose (NEGATIVE) mg/dL - Progress Progress: unchanged - Departure Departure Disposition: Home Clinical Impression: Left upper arm pain, Paresthesias in left hand Condition: Stable Critical Care Time: No Referrals: KRISTIE KNOX [Primary Care Provider] - Follow up/PCP as directed Instructions: Paresthesias (DC) Prescriptions: Diclofenac Sodium 50 mg [Voltaren 50 mg] 50 mg PO TID 10 Days #30 tablet
== END 2021-02-16 17:25 | disposition home or self-care (01) ==
LOC: ED 15:42
DX: M79.622 Pain in left upper arm (principal); R20.2 Paresthesia of skin; Z72.0 Tobacco use; Z82.49 Family history of ischemic heart disease and other diseases of the circulatory system
CPT/HCPCS: 36000; 36415; 70490; 71045; 80053; 81001; 83605; 83735; 83880; 84484; 85025; 93005; 99284

== ENCOUNTER 2023-10-19 17:13 | Emergency (ER) | payer BC, MEDICAID ==
[2023-10-19 18:01] VITALS: TEMP 98.8
--- NOTE | 2023-10-19 18:51 | ERPHSYRPT ---
- History of Present Illness Time Seen by Provider: 10/19/23 18:40 Source: patient Exam Limitations: no limitations Patient Subjective Stated Complaint: Cough Triage Nursing Assessment: Patient ambulated back to ED and transferred self to bed. Patient A+O X3. Patient's skin pink, warm and dry. Patient complains of fever, bodyaches, headache 8/10 and intermittent non productive cough that started yesterday evening. Patient also complains of increased fatigue. Lungs clear a/p adria. Physician History: Since yesterday pt has had a subjective fever, chills, body aches and a headache; denies chest pain, shortness of air, nausea, vomiting, diarrhea, abdominal pain. Allergies/Adverse Reactions: No Known Drug Allergies Allergy (Verified 10/19/23 17:53) Home Medications: Omeprazole 1 tab PO DAILY 10/19/23 [History] Hx Tetanus, Diphtheria Vaccination/Date Given: Yes Hx Influenza Vaccination/Date Given: No Hx Pneumococcal Vaccination/Date Given: No Immunizations Up to Date: Yes Travel Risk - International Travel Have you traveled outside of the country in past 3 weeks: No - Emerging Infectious Disease Are you exhibiting symptoms associated with any current EIDs: No - Review of Systems Constitutional: Fever, Chills Respiratory: No Dyspnea Cardiac: No Chest Pain Musculoskeletal: Arthralgias Neurological: Headache - Past Medical History Pertinent Past Medical History: Yes Neurological History: No Pertinent History ENT History: No Pertinent History Cardiac History: No Pertinent History Respiratory History: No Pertinent History Endocrine Medical History: No Pertinent History Musculoskeletal History: No Pertinent History GI Medical History: GERD History: No Pertinent History Psycho-Social History: Anxiety Female Reproductive Disorders: No Pertinent History Other Medical History: Cold knife cone at age 15 years. Age of first intercourse 15 years. - Past Surgical History Past Surgical History: Yes Neuro Surgical History: No Pertinent History Cardiac: No Pertinent History Respiratory: No Pertinent History Gastrointestinal: No Pertinent History Genitourinary: No Pertinent History Musculoskeletal: No Pertinent History Female Surgical History: Other Other Surgical History: Conization at age 15 - Female History Hx Last Menstrual Period: yesterday Hx Now: No - Social History Smoking Status: Former smoker How long have you smoked: 10 years Exposure to second hand smoke: No Drug Use: none Patient Lives Alone: No - Social Determinants of Health Will the patient participate in the screening: Yes Do you worry about a steady place to live?: No Do you have any problems with any of the following?: No known problems In the past 12 months,have you had to go without utilities?: No Transportation Issues: No Has anyone in your support network made you feel unsafe?: No Have you or anyone in your house had to go without enough: No - Nursing Vital Signs Nursing Vital Signs: Initial Vital Signs Temperature 98.8 F 10/19/23 17:54 Pulse Rate 90 10/19/23 17:54 Respiratory Rate 20 10/19/23 17:54 Blood Pressure 131/78 10/19/23 17:54 O2 Sat by Pulse Oximetry 99 10/19/23 17:54 Pain Scale Pain Intensity 8 - Physical Exam General Appearance: alert Eye Exam: PERRL/EOMI ENT Exam: hearing grossly normal, TM red (left), pharyngeal erythema (minimal), airway intact Neck Exam: normal inspection Respiratory Exam: lungs clear Cardiovascular/Chest Exam: normal heart sounds Gastrointestinal/Abdominal Exam: No abnormal bowel sounds Extremity Exam: No pedal edema Neurologic Exam: alert, cooperative Skin Exam: warm, dry SpO2 Interpretation: normal SpO2: 99 O2 Delivery: Room Air - Course Nursing assessment & vital signs reviewed: Yes Ordered Tests: Medication Summary Discontinued Medications Generic Name Dose Route Start Last Admin Trade Name Geoffreyq PRN Reason Stop Dose Admin Acetaminophen 650 mg 10/19/23 18:57 Acetaminophen 325 Mg Tablet PO 10/19/23 18:58 STAT ONE Azithromycin 500 mg 10/19/23 18:56 Azithromycin 250 Mg Tablet PO 10/19/23 18:57 STAT ONE - Progress Progress: unchanged Counseled pt/family regarding: diagnosis, need for follow-up - Departure Departure Disposition: Home Clinical Impression: LOM (left otitis media), Pharyngitis Condition: Stable Critical Care Time: No Referrals: ERICK MORRIS [Primary Care Provider] - Follow up/PCP as directed Instructions: Ear infections in adults Additional Instructions: Follow up with private doctor tomorrow. Forms: Work/School Release Form Prescriptions: Azithromycin 250 mg [Zithromax 250 MG TABLET] 250 mg PO ZPACK #6 tablet
[2023-10-19] MEDS ORDERED: TYLENOL 325 MG ONE (19:06)
[2023-10-19] MEDS ORDERED: Zithromax 250 MG TABLET ONE (19:06)
[2023-10-19] MEDS: Zithromax 250 MG TABLET PO ONE (19:08)
[2023-10-19] MEDS: TYLENOL 325 MG PO ONE (19:08)
[2023-10-19 19:11] LABS: Group A Strep NOT DETECTED (NEGATIVE)
[2023-10-19 19:23] LABS: INFLUENZA A NEGATIVE (NEGATIVE); INFLUENZA B NEGATIVE (NEGATIVE); RESPIRATORY SYNCTIAL VIRUS NEGATIVE (NEGATIVE); SARS-CoV-2 Xpert Express NEGATIVE (NEGATIVE)
[2023-10-19 19:32] VITALS: BP 115/86; PULSE 84; RESP 16; O2SAT 98
== END 2023-10-19 19:32 | disposition home or self-care (01) ==
LOC: ED 17:13
DX: H66.91 Otitis media, unspecified, right ear (principal); J02.9 Acute pharyngitis, unspecified; R51.9 Headache, unspecified; M79.10 Myalgia, unspecified site
CPT/HCPCS: 0241U; 87651; 99283; A9270-GY